=== PATIENT | female | born 1995 | race Caucasian/White ===

== ENCOUNTER 2020-09-08 01:00 | Emergency (ER) | payer OTHER ==
[~2020-09-08] VITALS: Ht 157.5 cm; Wt 60.3 kg
--- NOTE | 2020-09-08 01:05 | NUR ---
PT AAOX4. AMBULATORY WITH STEADY GAIT. BIBSELF C/O N/V AND FEVER (100.0) STARTED AT 4PM, TOOK TYLENOL AT 4PM, PT HAD BRAZILLIAN BUTT SURGERY X5 DAYS AGO. PT PLACED IN BED 3 ON MONITOR AND PULSE OX. NO ACUTE DISTRESS NOTED. ER MD AT BEDSIDE FOR EVAL. AWAITING ORDERS.
[2020-09-08] MEDS ORDERED: IV NS 0.9% 1,000 ML BAG IV ONE (01:30)
[2020-09-08] MEDS ORDERED: ONDANSETRON HCL/PF 4 MG/2 ML VIAL IVP ONE (01:30)
[2020-09-08] MEDS ORDERED: ONDANSETRON HCL/PF 4 MG/2 ML VIAL ONE (01:43)
--- NOTE | 2020-09-08 01:54 | NUR ---
LINE ESTABLISHED, PT MEDICATED.
--- NOTE | 2020-09-08 01:54 | NUR ---
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
[2020-09-08 02:12] LABS: BASOPHILS % (AUTO) 0.3 % (0.0-2.0); EOSINOPHILS % (AUTO) 3.5 % (0.0-6.0); HEMATOCRIT 36 % (33-45); LYMPHOCYTES # (AUTO) 1.2 /CMM (0.8-4.8); LYMPHOCYTES % (AUTO) 15.3 % (20.0-44.0); MEAN CORPUSCULAR HGB CONC 34 g/dl (31.0-36.0); MEAN CORPUSCULAR VOLUME 93 fL (82-100); MONOCYTES # (AUTO) 0.5 /CMM (0.1-1.30); NEUTROPHILS # (AUTO) 5.8 /CMM (1.8-8.9); NEUTROPHILS % (AUTO) 73.9 % (43.0-81.0); PLATELET COUNT (AUTO) 354 /CMM (150-450); RED BLOOD CELL COUNT(AUTO) 3.84 MIL/uL (4.0-5.2); WHITE BLOOD COUNT (AUTO) 7.8 K/uL (4.3-11.0)
[2020-09-08 02:19] LABS: CALCIUM, SERUM 8.7 mg/dL (8.5-10.1); CREATININE 0.6 mg/dL (0.6-1.3); POTASSIUM 3.4 mmol/L (3.5-5.1)
[2020-09-08] MEDS ORDERED: IOHEXOL-300 100 ML VIAL IV ONE (02:25)
--- NOTE | 2020-09-08 03:03 | NUR ---
URINE COLLECTED, CALLED LAB FOR CHROME PLATER
[2020-09-08 03:31] LABS: BILIRUBIN,URINE NEGATIVE (NEGATIVE); COLOR,URINE YELLOW (YELLOW); LEUKOCYTE ESTERASE ,URINE NEGATIVE (NEGATIVE); NITRITE, URINE NEGATIVE (NEGATIVE); PH,URINE 6.5 (5.0-8.0); PROTEIN,URINE NEGATIVE (NEGATIVE); UGLUCOSE NEGATIVE (NEGATIVE); UROBILINOGEN,URINE 0.2 EU/dL (0.2)
[2020-09-08 03:52] LABS: BACTERIA,URINE None seen /HPF (None Seen); MUCUS,URINE Few /LPF (None Seen); RBC,URINE 0-2 /HPF (0-2); SQUAMOUS EPITHELIAL CELL,UR Many /HPF (None Seen); WBC,URINE 0-2 /HPF (0-3)
[2020-09-08] MEDS ORDERED: ONDA4TAB11 PO (03:56)
[2020-09-08 04:07] VITALS: BP 141/89
--- NOTE | 2020-09-08 04:07 | NUR ---
Patient discharged to home in stable condition. Written and verbal after care instructions given. Patient verbalizes understanding of instruction and RX. vss. Ambulated out of ED.
--- NOTE | 2020-09-08 04:07 | NUR ---
IV removed. Catheter intact and site benign. Pressure and 4x4 applied to site. No bleeding noted.
== END 2020-09-08 04:19 | disposition home or self-care (01) ==
LOC: ER 01:04
DX: R11.2 Nausea with vomiting, unspecified (principal); R50.9 Fever, unspecified; R53.83 Other fatigue
CPT/HCPCS: 36415; 71045; 74177; 80048; 81001; 85025; 87040; 96361; 96374; 99285; J2405; J7030; Q9967

== ENCOUNTER 2025-05-02 12:20 | Emergency (ER) | payer OTHER ==
[~2025-05-02] VITALS: Ht 157.5 cm; Wt 59.0 kg
[~2025-05-02 12:20] MED LIST: ONDA4TAB11 PO
[2025-05-02] MEDS ORDERED: CYCL5TAB PO (13:30)
[2025-05-02] MEDS ORDERED: LIDO30AD10 TP (13:30)
[2025-05-02] MEDS ORDERED: IBUP-1955 PO (13:30)
[2025-05-02 13:36] VITALS: BP 115/68; TEMP 98.3; O2SAT 98
== END 2025-05-02 13:37 | disposition home or self-care (01) ==
LOC: ER 12:27
DX: R07.89 Other chest pain (principal)
CPT/HCPCS: 71045-TC